=== PATIENT | male | born 1990 | race Caucasian/White ===

== ENCOUNTER 2024-02-03 12:48 | Emergency (ER) | payer OTHER, SELFPAY ==
[2024-02-03 12:57] VITALS: BP 143/79; PULSE 87; RESP 20; TEMP 36.9; O2SAT 98; BMI 34.8
--- NOTE | 2024-02-03 13:05 | DI.RAD.S_ITS ---
PROCEDURE: XR CHEST 1V INDICATIONS: Shortness of breath TECHNIQUE: One view of the chest was acquired. COMPARISON: None. FINDINGS: Surgical changes and devices: None. Lungs and pleura: Medial left lung base opacity. No pneumothorax or pleural effusion. Mediastinum: Mediastinal contours appear normal. Heart size is normal. Bones and chest wall: No suspicious bony lesions. Overlying soft tissues appear unremarkable. IMPRESSION: Left medial lung base opacity consistent with pneumonia. Recommend follow up chest radiograph 4-6 weeks after treatment to document resolution of findings and/or return to baseline examination. Dictated by: Fernandez Gonzalez M.D. on 02/03/2024 at 13:55 Approved by: Fernandez Gonzalez M.D. on 02/03/2024 at 13:56
--- NOTE | 2024-02-03 13:05 | EKG_ITS ---
[address] [address] Test Date: 2024-02-03 Pat Name: Sam Barrett Department: Room: Gender: Male Apartment Rental Agent: SANTA : 1990 Requested By: Order Number: [id number] Reading MD: Rodrigo Rowley Measurements Intervals [place] Rate: 85 P: 28 MA: 176 QRS: 75 QRSD: 108 T: 49 QT: 338 QTc: 402 Interpretive Statements Normal sinus rhythm Electronically Signed On 02-05-2024 7:49:18 PST by Rodrigo Rowley
[2024-02-03 13:45] LABS: Add Manual Diff / Slide Review NO; Basophils Absolute Auto 0 /uL (0-100); Basophils Percent Auto 0.4 % (0-2); Eosinophils Absolute Auto 0 /uL (0-450); Eosinophils Percent Auto 0.1 % (2-4); Hematocrit 43.7 % (41-53); Hemoglobin 14.9 g/dL (13.5-17.5); Lymphocytes Absolute Auto 1100 /uL (1100-4500); Lymphocytes Percent Auto 15.4 % (25-40); Mean Corpuscular HGB Conc 34.1 % (30-36); Mean Corpuscular Hemoglobin 28.5 PG (26-34); Mean Corpuscular Volume 83.6 fL (80-100); Monocytes Absolute Auto 900 /uL (0-900); Monocytes Percent Auto 11.7 % (3-14); Neutrophils Absolute Auto 5300 /uL (1500-7000); Neutrophils Percent Auto 72.4 % (50-75); Platelet Count 206 X10^3/uL (150-400); Red Blood Cell Count 5.23 X10^6/uL (4.5-5.9); Red Cell Distribution Width 13.3 % (11.6-14.8); White Blood Cell Count 7.3 X10^3/uL (4.5-11.0)
[2024-02-03 13:53] LABS: INR 1.2 (0.9-1.3); Prothrombin Time 13.9 SECONDS (9.4-12.5)
[2024-02-03 13:57] LABS: Alanine Aminotransferase 52 IU/L (<50); Albumin 4.8 g/dL (3.5-5.0); Albumin Globulin Ratio 1.3 (1.0-2.8); Alkaline Phosphatase 66 U/L (38-126); Aspartate Aminotransferase 38 IU/L (17-59); BUN Creatinine Ratio 14.3 (6-22); Bilirubin Total 1.2 mg/dL (0.2-1.3); Blood Urea Nitrogen 13 mg/dL (9-20); Calcium 9.3 mg/dL (8.4-10.2); Carbon Dioxide 27 mmol/L (22-32); Chloride 102 mmol/L (98-107); Estimated Glomerular Filt Rate > 60 mL/min (>60); Globulin 3.6 g/dL (1.7-4.1); Glucose 96 mg/dL (70-100); HEMOLYSIS < 15 (0-50); Potassium 3.9 mmol/L (3.4-5.1); Sodium 140 mmol/L (137-145); Total Protein 8.4 g/dL (6.3-8.2)
[2024-02-03 13:58] LABS: Lactate (Lactic Acid) 0.7 mmol/L (0.7-2.1)
[2024-02-03 14:10] LABS: NT-proBNP (BNP-Adult 18+) 49 pg/mL (<125); Troponin I < 0.012 ng/mL (0.01-0.034)
--- NOTE | 2024-02-03 14:10 | ED_ITS ---
<Statement entered by Leonid Barone, - 02/03/24 17:48> Dr. Barone: I was immediately available in the department for consultation. Documentation has been reviewed. I agree with assessment and plan. HPI - SOB/Dyspnea General Chief Complaint: Shortness of Breath/Dyspnea Stated Complaint: WIC; Flu-Like Symptoms, SoB; SHIP Time Seen by Provider: 02/03/24 14:09 Source: patient Mode of arrival: Ambulatory Limitations: no limitations History of Present Illness HPI Narrative: 33-year-old male with a past medical history of Hagan's palsy and hernia presents to the emergency department for shortness of breath, fever, fatigue times 24 hours. States yesterday around noon he developed a fever with T-max of 101?, subjective shortness of breath, dry cough, lightheadedness and nausea. States that since then his fever has broke but he continues to feel slight dyspnea and have the dry cough. Patient is an data engineer working on a ship and reports that he is concerned he had a possible hydrogen sulfide exposure 2 days while examining a waste tank. He was wearing proper PPE. Admits to some sensation of difficulty taking a deep breath but denies chest pain, abdominal pain, vomiting, diarrhea, sore throat, congestion, skin irritation. He quit smoking 1.5 years ago. Related Data Previous Rx's Medication Instructions Recorded amoxicillin 875 mg-potassium 1 tab PO BID 5 days #10 tabs 02/03/24 clavulanate 125 mg tablet doxycycline hyclate 100 mg capsule 100 mg PO BID 5 days #10 caps 02/03/24 Allergies Allergy/AdvReac Type Severity Reaction Status Date / Time No Known Drug Allergies Allergy Verified 02/03/24 13:04 Review of Systems Review of Systems ROS Unobtainable: All systems reviewed & are unremarkable except as noted in HPI and below Patient History Social History Smoking Status: Unknown if ever smoked Smoking Status: Unknown if ever smoked Substance Use Type: does not use Exam Narrative Exam Narrative: GENERAL: 33 year old patient appears stated age. Well-developed patient, in no acute distress. HEAD: Atraumatic. Normocephalic. EYES: Extraocular motions intact. No scleral icterus. No injection or drainage. ENT: Nose without bleeding, purulent drainage. Airway patent. NECK: Trachea midline. Cervical ROM intact. CARDIOVASCULAR: Regular rate and rhythm. RESPIRATORY: ?Nonlabored respirations. ?Speaking in clear, full sentences. ?Mild LLE exp coarse breath sounds. Otherwise No wheezes, rales, or rhonchi. ? GASTROINTESTINAL: Abdomen soft, non-tender, nondistended. EXTREMITIES: No edema or joint tenderness. BACK: Nontender without deformity or crepitance. No flank tenderness. NEURO: AOx3. ?Clear speech. ?Moves all 4 extremities appropriately. SKIN: No rash or erythema of visible areas Initial Vital Signs Initial Vital Signs: Vital Signs Temperature 98.4 F 02/03/24 12:57 Pulse Rate 87 02/03/24 12:57 Respiratory Rate 20 02/03/24 12:57 Blood Pressure 143/79 H 02/03/24 12:57 Pulse Oximetry 98 02/03/24 12:57 Oxygen Delivery Method Room Air 02/03/24 12:57 Scores PERC Score Age greater than or equal to 50 years: No Heart rate greater than or equal to 100 bpm: No Room Air O2 Sat less than 95%: No Unilateral leg swelling: No Recent trauma or surgery: No Hemoptysis: No Prior PE or DVT: No Hormone Use: No Total PERC Score: 0 Course Orders Ordered: ED Orders 02/03/24 13:05 XR chest 1V Stat EKG-12 Lead Stat Measure peak expiratory flow ONCE RT Consult Eval and Treat NOW 02/03/24 13:30 Complete Blood Count AUTO DIFF Stat Comprehensive Metabolic Panel Stat Lactate (Lactic Acid) Stat NT-proBNP (BNP-Adult 18+) Stat Prothrombin Time INR Stat Troponin I Stat Vital Signs Vital signs: Vital Signs - 8 hr 02/03/24 12:57 02/03/24 15:40 Temperature 98.4 F Pulse Rate 87 85 Respiratory Rate 20 20 Blood Pressure 143/79 H 141/70 H Pulse Oximetry 98 100 Oxygen Delivery Method Room Air Room Air MDM - SOB/Dyspnea Lab Data 02/03/24 13:30 02/03/24 13:30 Labs: Lab Results 02/03/24 Range/Units 13:30 WBC 7.3 (4.5-11.0) X10^3/uL RBC 5.23 (4.5-5.9) X10^6/uL Hgb 14.9 (13.5-17.5) g/dL Hct 43.7 (41-53) % MCV 83.6 (80-100) fL MCH 28.5 (26-34) PG MCHC 34.1 (30-36) % RDW 13.3 (11.6-14.8) % Plt Count 206 (150-400) X10^3/uL Neut % (Auto) 72.4 (50-75) % Lymph % (Auto) 15.4 L (25-40) % [place] % (Auto) 11.7 (3-14) % Eos % (Auto) 0.1 L (2-4) % Baso % (Auto) 0.4 (0-2) % Neut # (Auto) 5300 (7975-6888) /uL Lymph # (Auto) 1100 (0382-0264) /uL [place] # (Auto) 900 (0-900) /uL Eos # (Auto) 0 (0-450) /uL Baso # (Auto) 0 (0-100) /uL PT 13.9 H (9.4-12.5) SECONDS INR 1.2 (0.9-1.3) Sodium 140 (137-145) mmol/L Potassium 3.9 (3.4-5.1) mmol/L Chloride 102 (98-107) mmol/L Carbon Dioxide 27 (22-32) mmol/L BUN 13 (9-20) mg/dL Creatinine 0.91 (0.66-1.25) mg/dL Estimated GFR > 60 (>60) mL/min BUN/Creatinine Ratio 14.3 (6-22) Glucose 96 (70-100) mg/dL Lactate 0.7 (0.7-2.1) mmol/L Calcium 9.3 (8.4-10.2) mg/dL Total Bilirubin 1.2 (0.2-1.3) mg/dL AST 38 (17-59) IU/L ALT 52 H (<50) IU/L Alkaline Phosphatase 66 (38-126) U/L Troponin I < 0.012 (0.01-0.034) ng/mL NT-Pro-B Natriuret Pep 49 (<125) pg/mL Total Protein 8.4 H (6.3-8.2) g/dL Albumin 4.8 (3.5-5.0) g/dL Globulin 3.6 (1.7-4.1) g/dL Albumin/Globulin Ratio 1.3 (1.0-2.8) Imaging Data Chest x-ray: Radiologist's Impression: PROCEDURE: XR CHEST 1V INDICATIONS: Shortness of breath TECHNIQUE: One view of the chest was acquired. COMPARISON: None. FINDINGS: Surgical changes and devices: None. Lungs and pleura: Medial left lung base opacity. No pneumothorax or pleural effusion. Mediastinum: Mediastinal contours appear normal. Heart size is normal. Bones and chest wall: No suspicious bony lesions. Overlying soft tissues appear unremarkable. IMPRESSION: Left medial lung base opacity consistent with pneumonia. Recommend follow up chest radiograph 4-6 weeks after treatment to document resolution of findings and/or return to baseline examination. MDM Narrative Medical decision making narrative: 33-year-old male presents to the emergency department for shortness of breath, fever, cough times 24 hours. Differential diagnosis includes but is not limited to viral URI, bronchitis, pneumonia, work exposure, ACS/MA, PE, etc. On physical exam patient is in no acute distress, nontoxic appearing, afebrile, not tachycardic. Slight coarse breath sounds in left lower lobe. No wheezing. Perc negative. Patient obtained chest x-ray and shortness of breath workup in ED waiting room. Labs reveal negative BNP, negative troponin, negative lactate. WBC count normal at 7.3. No anemia. Electrolytes normal. Normal renal function. Chest x-ray reveals left medial lung base opacity consistent with pneumonia. Patient has a long history of smoking however he did quit 1.5 years ago. We will treat with Augmentin b.i.d. x5 days in addition to doxycycline 100 mg b.i.d. x5 days for CAP. Appropriate paperwork filled out with the patient's work and contacted [facility] as instructed. Antibiotics sent to pharmacy of choice. Patient is very well-appearing understanding and agreeable to plan. Discussed PCP follow up and strict ER return precautions. Patient is stable for discharge at this time. Discharge Plan Departure Patient Disposition: Home Clinical Impression: Pneumonia Qualifiers: Pneumonia type: due to unspecified organism Laterality: left Lung location: l ower lobe of lung Qualified Code(s): J18.9 - Pneumonia, unspecified organism Instructions: DI for Pneumonia -- Adult Activity Restrictions/Additional Instructions: Dear Catracho Nena, Your diagnosis today is pneumonia. Please take Ibuprofen (Motrin/Advil) or Acetaminophen (Tylenol) for pain. These are available over the counter. You may take Ibuprofen 600 mg every 8 hours with food for pain. You may also take Acetaminophen 650 mg every 4-6 hours for pain. Do not exceed 3000 mg of Tylenol a day as this can cause liver damage. Do not drink alcohol with either of these medications. Please follow up with your primary care doctor within the next 2-3 days for ER follow-up. (If you do not have a PCP you can call [phone]. ?to schedule an appointment with an [facility] Primary Care Provider) IF YOU DEVELOP ANY NEW OR WORSENING SYMPTOMS, RETURN TO THE ER! Please read the attached instructions, they highlight more specific treatments and interventions for you at home. Thank you for letting me participate in your care, Chayito Terry PA-C Prescriptions: New amoxicillin-pot clavulanate 875-125 mg tablet 1 tab PO BID 5 Days Qty: 10 0RF doxycycline hyclate 100 mg capsule 100 mg PO BID 5 Days Qty: 10 0RF Referrals: Miscellaneous,Doctor, MD [Primary Care Provider] - Stand Alone Forms: Patient Portal/API/Survey
[2024-02-03 15:40] VITALS: BP 141/70; PULSE 85; RESP 20; O2SAT 100
== END 2024-02-03 15:46 | disposition home or self-care (01) ==
PROVIDERS: Student in an Organized Health Care Education/Training Program; Emergency Provider Physician Assistant
DX: J18.9 Pneumonia, unspecified organism (principal); Z87.891 Personal history of nicotine dependence
CPT/HCPCS: 36415; 71045; 80053; 83605; 83880; 84484; 85025; 85610; 93005; 99283; 99284